=== PATIENT | female | born 1950 | race Caucasian/White ===

== ENCOUNTER 2021-03-01 20:45 | Emergency (ER) | payer MEDICARE ==
[2021-03-01 21:16] LABS: BASOPHIL 0.3 % (0-2); EOSINOPHIL 0 % (0-7); HCT 39.3 % (37.0-47.0); HGB 13.2 g/dl (12.5-16.0); LYMPHOCYTE 29.5 % (15-48); MCH 31.4 pg (25.0-31.0); MCHC 33.6 g/dL (32.0-36.0); MCV 93.6 fL (78.0-100.0); MONOCYTE 8.1 % (0-12); MPV 11.1 fL (6.0-9.5); NEUTROPHIL 61.6 % (41-80); NRBC 0; PLT 148 K/uL (150-400); RDW 13.6 % (11.5-14.0); WBC 3.9 K/uL (4.0-10.5)
[2021-03-01 21:37] LABS: ALBUMIN 3.5 g/dL (3.4-5.0); BILIRUBIN - TOTAL 0.2 mg/dL (0.2-1.0); BUN/CREAT RATIO (CALC) 11.4 RATIO; CREATININE 1.14 mg/dL (0.51-0.95); GLOBULIN (CALCULATION) 3.6 g/dL; POTASSIUM 4.1 mmol/L (3.5-5.1); TOTAL PROTEIN 7.1 g/dL (6.4-8.2)
== END 2021-03-02 00:26 | disposition home or self-care (01) ==
LOC: FER 20:45
PROVIDERS: Internal Medicine
DX: U07.1 COVID-19 (principal); R41.0 Disorientation, unspecified; I10 Essential (primary) hypertension; Z88.1 Allergy status to other antibiotic agents
CPT/HCPCS: 36415; 70450; 71045; 80053; 83605; 84145; 84443; 84484; 85025; 93005; J7120; U0002